=== PATIENT | female | born 1980 | race Caucasian/White ===

== ENCOUNTER → 2021-03-31 | Outpatient (CLI) | payer OTHER ==
[~2021-03-31] MED LIST: CELEXA40 MG PO; CLARITIN10 MG PO; DICYCLOMINE HCL10 MG PO; IMITREX100 MG PO; IRON325 M1 PO; NORCO 5-325 TA1 EACH PO; SYNTHROID88 MCG PO
== END ==
LOC: EXRD 09:50
DX: M25.50 Pain in unspecified joint (principal)
CPT/HCPCS: 73130; 73564

== ENCOUNTER 2021-11-24 13:38 | Emergency (ER) | payer OTHER ==
[2021-11-24 14:23] LABS: RED BLOOD COUNT 4.6 M/UL (4.00-5.10); WHITE BLOOD COUNT 8.6 K/UL (4.5-11.0)
[2021-11-24 14:45] LABS: BUN/CREATININE RATIO 12 (0-10)
== END 2021-11-24 21:00 | disposition left against medical advice (07) ==
LOC: ER1 13:38
PROVIDERS: Emergency Medicine
DX: R53.1 Weakness (principal); F17.200 Nicotine dependence, unspecified, uncomplicated; I10 Essential (primary) hypertension; Z79.01 Long term (current) use of anticoagulants; Z79.899 Other long term (current) drug therapy
CPT/HCPCS: 70450; 72141; 80053; 80307; 81001; 84484; 84703; 85025; 85610; 85730; 93005; 99285; Q9967